=== PATIENT | female | born 1995 | race Caucasian/White ===

== ENCOUNTER → 2018-08-14 14:40 | Outpatient (CLI) | payer OTHER, SELFPAY ==
--- NOTE | 2018-08-14 14:44 | US_ITS ---
US transvaginal HISTORY: Pelvic pain mostly on the right ITS.REASON: US T/V- Abnormal Vaginal Bleeding ORDERING PHYSICIAN: Jaylan Aguayo MD PATIENT AGE: 22 years Comparison: None FINDINGS: UTERUS: The uterus measures 6.8 x 4.6 x 5.5 cm. Combined endometrial thickness is 11 mm. The uterus is retroverted. Small cystic area versus vessel noted in the mid aspect of the anterior uterine wall measuring 8 mm. RIGHT OVARY: 4 x 3.2 cm. There is a 2.3 cm right ovarian cyst is some internal debris and other smaller right ovarian follicles LEFT OVARY: 2.8 x 1.9 cm There are small amount fluid in the cul-de-sac. Bilateral ovarian blood flow is present IMPRESSION: 1. Retroverted uterus. 2. 2.3 Cm complex right ovarian cyst with a small amount fluid in the cul-de-sac
== END ==
PROVIDERS: PCP Internal Medicine; Visit Provider Nurse Practitioner Obstetrics & Gynecology
DX: N92.6 Irregular menstruation, unspecified (principal)
CPT/HCPCS: 76830

== ENCOUNTER 2019-05-23 12:39 | Emergency (ER) | payer OTHER, SELFPAY ==
[2019-05-23 12:42] VITALS: BP 136/72; PULSE 69; RESP 20; TEMP 36.7; O2SAT 99; BMI 30.4
--- NOTE | 2019-05-23 12:57 | CT_ITS ---
PROCEDURE: CT ABDOMEN PELVIS W CON CLINICAL INDICATION: ABD PAIN, NV COMPARISON: No exams were available for comparison TECHNIQUE: IV Contrast: 75ML OPTIRAY 350 Oral Contrast 20ml Gastroview Axial images obtained with sagittal and coronal reformats. All CT scans at the facility use one or more dose reduction, viz: automated exposure control, ma/kV adjustment per patient size (including targeted exams where dose is matched to indication, i.e. head), or iterative reconstruction technique. FINDINGS: LOWER THORAX: No acute finding ABDOMEN & PELVIS: Borderline splenomegaly at 13 cm. There are 2 subtle hypodensities in the inferior aspect of the right hepatic lobe at 7 mm each nonspecific. There is a 1.7 cm posterior periportal lymph node. The adrenal glands pancreas and kidneys have an unremarkable appearance. No evidence of appendicitis or diverticulitis. No intestinal obstruction or free air. There is a small amount fluid in the pelvis which is nonspecific. 2 cm right ovarian cyst noted. No acute bony findings. IMPRESSION: 1. No acute finding. 2. Nonacute findings as described above including mild splenomegaly, 2 small hepatic hypodensities which are indeterminate. Follow-up exam in 3 months with hemangioma protocol may provide further evaluation. Small periportal lymph node small amount of cul-de-sac fluid and a small right ovarian cyst also noted. Dictated by: Donald Lee MD 05/23/2019 14:39 Electronically signed by Donald Lee MD in [facility] 05/23/2019 14:39
[2019-05-23 13:01] LABS: Microscopic, Urine URINE MICROSCOPIC (MICROSCOPIC)
[2019-05-23 13:05] LABS: Appearance,Urine CLEAR (Clear); Bilirubin,Urine Negative (Negative); Blood, Urine 3+ (Negative); Glucose,Urine (UA) Negative (Negative); Ketones,Urine Negative (Negative); Leukocyte Esterase,Urine TRACE (Negative); Nitrate,Urine Negative (Negative); Protein,Urine 1+ (Negative); Specific Gravity, Urine 1.025 (1.005-1.030); Urobilinogen,Urine 0.2 EU/dl (0.2)
[2019-05-23 13:06] LABS: Color,Urine Red (Yellow); Urine Pregnancy, HCG Qual. Negative (Negative)
[2019-05-23 13:11] LABS: Basophils % 0.2 % (0.1-2.0); Eosinophils % 0.2 % (0.1-12.0); Hematocrit 39.3 % (37.0-47.0); Hemoglobin 12.8 g/dL (12.2-16.2); Lymphocytes # 0.7 K/mm3 (0.7-4.5); Lymphocytes % 7.8 % (10-50); Mean Corpuscular HGB Conc 32.6 g/dL (31.8-35.4); Mean Corpuscular Hemoglobin 27.1 pg (27.0-31.2); Mean Corpuscular Volume 83.1 fl (81-99); Monocytes # 0.3 K/mm3 (0.1-1.0); Monocytes % 3.4 % (1.7-9.3); Neutrophils # 8.4 K/mm3 (1.8-7.8); Neutrophils % 88.4 % (37.0-80.0); Platelet Count 244 K/mm3 (142-424); Red Blood Count 4.73 M/mm3 (4.20-5.40); White Blood Count 9.5 K/mm3 (4.8-10.8)
[2019-05-23 13:13] LABS: MANUAL DIFFERENTIAL MANUAL DIFFERENTIAL (MANUAL DIFF)
[2019-05-23 13:13] LABS: Bacteria,Urine 3+ /lpf; Mucus,Urine Trace /lpf; RBC,Urine 20-50 #/hpf (0-3); WBC,Urine TNTC #/hpf (0-3)
[2019-05-23 13:14] LABS: Chloride 102 mmol/L (98-107); Potassium 3.6 mmoL/L (3.5-5.1); Sodium 138 mmol/L (136-145)
[2019-05-23 13:16] LABS: Barbiturates Screen,Urine Negative ng/ml (<200)
[2019-05-23 13:17] LABS: Alanine Aminotransferase 18 U/L (12-78); Albumin Level 4.7 g/dl (3.5-5.0); Albumin/Globulin Ratio 1.5 (1.1-1.8); Alkaline Phosphatase 73 U/L (38-126); Amylase 62 U/L (30-110); Anion Gap 11.6 mEq/L (5-15); Aspartate Amino Transferase 24 U/L (14-36); Bilirubin,Total 0.4 mg/dl (0.2-1.3); Blood Urea Nitrogen 11 mg/dl (7-17); Calcium 9.4 mg/dl (8.4-10.2); Carbon Dioxide 28 mmol/L (22.0-30.0); Creatinine Clearance Estimated 212 mL/min (50-200); Estimated Glomerular Filt Rate 126 ml/min (>60); GFR (African American) 153 ML/MIN (>60); Globulin 3.2 g/dL (1.3-3.2); Glucose 147 mg/dl (74-100); Lipase 43 U/L (23-300); Total Protein,Serum 7.9 g/dl (6.3-8.2)
[2019-05-23 13:17] LABS: Amphetamine/Metha Screen,Urine Negative ng/ml (<1000); Benzodiazepines Screen,Urine Negative ng/ml (<200)
[2019-05-23 13:18] LABS: Cannabinoid Screen,Urine Negative ng/ml (<50)
[2019-05-23 13:19] LABS: Cocaine Screen,Urine Negative ng/ml (<300)
[2019-05-23 13:20] LABS: Methadone Screen,Urine Negative ng/ml (<300); Opiate Screen,Urine Negative ng/ml (<300)
[2019-05-23 13:21] LABS: Phencyclidine Screen,Urine Negative ng/ml (<25)
--- NOTE | 2019-05-23 13:23 | HMH.EDGENADL ---
ED Disposition Clinical Impression: Cystitis, Vaginal bleeding Abdominal pain Qualifiers: Abdominal location: lower abdomen, unspecified Qualified Code(s): R10.30 - Lower abdominal pain, unspecified Disposition: Home, Self-Care Condition on Discharge: Good Instructions: DI for Abdominal Pain-Adult, DI for Vaginal Bleeding, DI for Urinary Tract Infection (UTI) Additional Instructions: Antibiotic as prescribed. Pyridium as prescribed. Ibuprofen as needed. Follow up with your primary care provider next week for urine culture results and also for further evaluation of vaginal bleeding. Follow-up with your primary care physician for CAT scan follow-up. Additional instructions for URINARY TRACT INFECTION: See your physician in 2-3 days for follow up and culture results. Return immediately if you have an uncontrollable fever greater than 102 degrees, severe back or abdominal pain, inability to urinate, or repetitive vomiting. Additional instructions for ABDOMINAL PAIN: See your physician as soon as possible for further evaluation. Return immediately if worsening abdominal pain, vomiting, shortness of breath, fever, vomiting of blood or abdominal distention. Prescriptions: cephALEXin [Keflex 500mg Cap] 500 mg PO QID #28 cap Transmission Status: Pending to [id number] Phenazopyridine HCl [Pyridium 200mg Tablet] 200 pow PO TID #6 tab Transmission Status: Pending to [id number] Referrals: Provider,Referral, [Primary Care Provider] - - Critical Care Critical Care Time: No Attestation: On 05/23/19, the high probability of a clinically significant, sudden or life threatening deterioration of the following system(s) required my full and direct attention, intervention and personal management. The time I documented below is in addition to time spent performing reported procedures but includes the following listed in this critical care notation. Medical Decision Making - Mihir Inquiry Pt receiving controlled substance: No Vital Signs: 05/23/19 12:42 Temperature 98.1 F Temperature Source Oral Pulse Rate [Right] 69 Respiratory Rate 20 Blood Pressure [Right Arm] 136/72 Blood Pressure Mean [Right Arm] 93 02 Sat by Pulse Oximetry 99 - Lab Data Lab Results 05/23/19 12:50: Urine Color Red, Urine Appearance Clear, Urine pH 8.0, Ur Specific [place] 1.025, Urine Protein 1+, Urine Glucose (UA) Negative, Urine Ketones Negative, Urine Blood 3+, Urine Nitrate Negative, Urine Bilirubin Negative, Urine Urobilinogen 0.2, Ur Leukocyte Esterase Trace, Urine RBC 20-50, Urine WBC Tntc, Ur Squamous Epith Cells 5-10, Urine Bacteria 3+, Urine Mucus Trace 05/23/19 12:50: Urine HCG, Qual Negative 05/23/19 12:50: Urine Opiates Screen Negative, Urine Methadone Screen Negative, Ur Barbituates Screen Negative, Ur Phencyclidine Scrn Negative, Ur Amphetamines Screen Negative, U Benzodiazepines Scrn Negative, Urine Cocaine Screen Negative, U Marijuana (THC) Screen Negative 05/23/19 13:03: WBC 9.5, RBC 4.73, Hgb 12.8, Hct 39.3, MCV 83.1, MCH 27.1, MCHC 32.6, RDW 14.0, Plt Count 244, MPV 8.0, Neut % (Auto) 88.4 H, Lymph % (Auto) 7.8 L, [place] % (Auto) 3.4, Eos % (Auto) 0.2, Baso % (Auto) 0.2, Neut # (Auto) 8.4 H, Lymph # (Auto) 0.7, [place] # (Auto) 0.3, Eos # (Auto) 0.0, Baso # (Auto) 0.0, Total Counted 100, Neutrophils % (Manual) 86 H, Lymphocytes % (Manual) 10, Monocytes % (Manual) 4, Platelet Estimate Normal, RBC Morphology Normal 05/23/19 13:03: Sodium 138, Potassium 3.6, Chloride 102, Carbon Dioxide 28, Anion Gap 11.6, BUN 11, Creatinine 0.60, Estimated Creat Clear 212, Estimated GFR 126, Est GFR ( Amer) 153, Glucose 147 H, Calcium 9.4, Total Bilirubin 0.4, AST 24, ALT 18, Alkaline Phosphatase 73, Total Protein 7.9, Albumin 4.7, Globulin 3.2, Albumin/Globulin Ratio 1.5, Amylase 62, Lipase 43 Result diagrams: 05/23/19 13:03 05/23/19 13:03 Orders (Tests/Meds): ED MEDICATIONS Generic Name Dose Route Start
[2019-05-23 13:30] LABS: Lymphocytes % 10 % (10-50); Monocytes % 4 % (2-9); Neutrophils % 86 % (42-76); Platelet Estimate Normal; RBC Morphology Normal; Total Cells Counted 100
[2019-05-23 16:03] VITALS: BP 119/61; PULSE 55; RESP 20; TEMP 36.6; O2SAT 98
== END 2019-05-23 16:08 | disposition home or self-care (01) ==
PROVIDERS: Emergency Provider Emergency Medicine
DX: N30.00 Acute cystitis without hematuria (principal); N93.8 Other specified abnormal uterine and vaginal bleeding; F41.8 Other specified anxiety disorders; Z79.899 Other long term (current) drug therapy
CPT/HCPCS: 74177; 80053; 80305; 81001; 81025; 82150; 83690; 85007; 85025; 87086; 96365; 96367; 96372; 99283; Q9967

== ENCOUNTER → 2020-06-05 13:16 | Outpatient (CLI) | payer OTHER, SELFPAY ==
--- NOTE | 2020-06-05 13:19 | US_ITS ---
PROCEDURE: US OB >= 14 WEEKS FETUS CLINICAL INDICATION: US OB Complete 20 wk anatomy scan-AFTER 14 wks COMPARISON: No exams were available for comparison FINDINGS: There is a single live fetus which is in breech presentation. heart body motion noted. The cervix is closed measuring 3 cm in length. The placenta posterior and fundal also with an anterior accessory component. Placenta is grade 1. Complete survey performed and was unremarkable on the submitted images as in PACS. No discrete anomalies identified on survey imaging by technologist. Active fetus. Three-vessel cord with satisfactory umbilical cord insertion. 4- chamber heart noted. Survey of brain & ventricles Unremarkable. Face and neck survey unremarkable. Diaphragm and chest views unremarkable. Abdomen: Both kidneys noted and unremarkable. Stomach noted and satisfactory. Spine: Survey of the spine satisfactory with no anomalies identified nor imaged. Both arms and legs noted. Amniotic Fluid: Adequate. Maternal adnexa: No significant findings. Measurements: Average ultrasound age 20weeks 6days. Gestational Age 20weeks 6days Estimated due date by ultrasound age 0910/17/2020. Estimated weight 395g BPD = 20weeks 4days OFD = 20weeks 4days HC = 19weeks 6days AC = 21weeks 3days FL = 21weeks 1day Growth Percentile= 33Percent% Heart Rate = 153bpm Cerebellum = 20weeks 6days Humerus = 22weeks HC/AC is 1.06 CI is 0.79 FL/BPD is 0.73 FL/AC is 0.21 IMPRESSION: Live IUP in breech presentation with an average ultrasound age of 20 weeks and 6 days. No obvious anomalies. Please see above for detail. Dictated by: Donald Lee MD 06/06/2020 09:20 Donald Lee MD in [facility] 06/06/2020 09:20
== END ==
PROVIDERS: PCP Internal Medicine Cardiovascular Disease; Visit Provider Nurse Practitioner Obstetrics & Gynecology
DX: Z36.0 Encounter for antenatal screening for chromosomal anomalies (principal); Z3A.20 20 weeks gestation of pregnancy
CPT/HCPCS: 76805

== ENCOUNTER 2020-08-01 10:47 | Outpatient (CLI) | payer OTHER, SELFPAY ==
[2020-08-01 11:16] LABS: Glucose,Fasting 81 mg/dl (74-100)
[2020-08-01 13:00] LABS: Glucose 1 Hour 135 mg/dL (74-100)
--- NOTE | 2020-08-01 14:04 | PC.NURSE ---
Injection given in r gluteul muscle. Pt was monitored for 20 min afterwards and tolerated well.
== END 2020-08-01 14:03 | disposition home or self-care (01) ==
PROVIDERS: PCP Internal Medicine; Visit Provider Nurse Practitioner Obstetrics & Gynecology
DX: Z34.90 Encounter for supervision of normal pregnancy, unspecified, unspecified trimester (principal)
CPT/HCPCS: 82951; 96372; J2790

== ENCOUNTER → 2020-08-08 10:45 | Outpatient (CLI) | payer OTHER, SELFPAY ==
[2020-08-08 11:38] LABS: Glucose,Fasting 83 mg/dl (74-100)
[2020-08-08 11:45] LABS: Basophils % 0.3 % (0.1-2.0); Eosinophils # 0.1 K/mm3 (0.0-0.4); Hematocrit 30.4 % (37.0-47.0); Hemoglobin 10.8 g/dL (12.2-16.2); Lymphocytes % 11.9 % (10-50); Mean Corpuscular HGB Conc 35.5 g/dL (31.8-35.4); Mean Corpuscular Hemoglobin 31.4 pg (27.0-31.2); Mean Corpuscular Volume 88.7 fl (81-99); Monocytes # 0.4 K/mm3 (0.1-1.0); Monocytes % 5.1 % (1.7-9.3); Neutrophils # 6.9 K/mm3 (1.8-7.8); Neutrophils % 81.7 % (37.0-80.0); Platelet Count 75 K/mm3 (142-424); Red Blood Count 3.42 M/mm3 (4.20-5.40); White Blood Count 8.5 K/mm3 (4.8-10.8)
[2020-08-08 13:05] LABS: Glucose 1 Hour 159 mg/dL (74-100)
[2020-08-09 10:35] LABS: HIV Screen 4th Generation wRfx Non Reactive (Non Reactive); Hepatitis B Surface Antigen Negative (Negative); Hepatitis C Antibody <0.1 s/co ratio (0.0-0.9)
[2020-08-09 11:08] LABS: Rapid Plasma Reagin Ab Titer Non Reactive (NonRea<1:1)
== END ==
PROVIDERS: Visit Provider Nurse Practitioner Obstetrics & Gynecology
DX: Z34.90 Encounter for supervision of normal pregnancy, unspecified, unspecified trimester (principal); Z3A.16 16 weeks gestation of pregnancy
CPT/HCPCS: 36415; 82951; 85025; 86592; 86703; 86762; 86850; 86870; 87340; 87380; G0432

== ENCOUNTER → 2020-09-23 17:57 | Outpatient (CLI) | payer OTHER, SELFPAY | PROVIDERS: Visit Provider Nurse Practitioner Obstetrics & Gynecology | DX: Z34.90 Encounter for supervision of normal pregnancy, unspecified, unspecified trimester (principal) | CPT/HCPCS: 86403 ==

== ENCOUNTER 2020-10-11 23:44 | Inpatient (IN) | payer OTHER, SELFPAY ==
[2020-10-11 22:39] VITALS: BMI 32.2
[2020-10-11 23:09] LABS: Microscopic, Urine URINE MICROSCOPIC (MICROSCOPIC)
[2020-10-11 23:13] LABS: Appearance,Urine CLEAR (Clear); Bilirubin,Urine Negative (Negative); Blood, Urine Negative (Negative); Color,Urine YELLOW (Yellow); Glucose,Urine (UA) Negative (Negative); Ketones,Urine Negative (Negative); Leukocyte Esterase,Urine Negative (Negative); Nitrate,Urine Negative (Negative); Protein,Urine Negative (Negative); Urobilinogen,Urine 0.2 EU/dl (0.2)
[2020-10-11 23:17] VITALS: BP 134/83; PULSE 67; RESP 18; TEMP 36.7; O2SAT 96; BMI 32.2
[2020-10-11 23:23] LABS: Fetal Membrane Rupture (Rapid) Positive (Negative)
[2020-10-11 23:27] LABS: Amphetamine/Metha Screen,Urine Negative ng/ml (<1000); Bacteria,Urine Trace /lpf; Squamous Epithelial Cell,Urine Occasional #/hpf (0-5)
[2020-10-11 23:28] LABS: Barbiturates Screen,Urine Negative ng/ml (<200)
[2020-10-11 23:29] LABS: Benzodiazepines Screen,Urine Negative ng/ml (<200); Cannabinoid Screen,Urine Negative ng/ml (<50)
[2020-10-11 23:30] LABS: Cocaine Screen,Urine Negative ng/ml (<300)
[2020-10-11 23:31] LABS: Methadone Screen,Urine Negative ng/ml (<300); Opiate Screen,Urine Negative ng/ml (<300)
[2020-10-11 23:32] LABS: Phencyclidine Screen,Urine Negative ng/ml (<25)
[2020-10-12 00:24] LABS: Coronavirus 19, PCR Not Detected (NotDetected); Influenza A, PCR Not Detected (NotDetected); Influenza B, PCR Not Detected (NotDetected)
[2020-10-12 00:27] LABS: Basophils # 0.1 K/mm3 (0-0.2); Basophils % 0.4 % (0.1-2.0); Eosinophils % 0.3 % (0.1-12.0); Hematocrit 39.7 % (37.0-47.0); Hemoglobin 13.5 g/dL (12.2-16.2); Lymphocytes # 1.8 K/mm3 (0.7-4.5); Lymphocytes % 14.2 % (10-50); Mean Corpuscular HGB Conc 34.1 g/dL (31.8-35.4); Mean Corpuscular Hemoglobin 31.3 pg (27.0-31.2); Mean Corpuscular Volume 91.7 fl (81-99); Mean Platelet Volume 8.5 fl (7.4-10.4); Monocytes # 0.6 K/mm3 (0.1-1.0); Monocytes % 4.7 % (1.7-9.3); Neutrophils # 10.1 K/mm3 (1.8-7.8); Neutrophils % 80.4 % (37.0-80.0); Platelet Count 192 K/mm3 (142-424); Red Blood Count 4.33 M/mm3 (4.20-5.40); Red Cell Distribution Width 14.7 % (11.5-17.5); White Blood Count 12.6 K/mm3 (4.8-10.8)
--- NOTE | 2020-10-12 10:19 | HMH.ANESCL ---
[facility] Anesthesia Checklist - Patient Identification Patient Identification: Arm Band, Verbal (Name & ) - Structural Data Admitted From: Inpatient Planned Operative Procedure/s: labor epidural Consent for Planned Operative Procedure(s) Verified: Yes Verified Documents: History and Physical - Chart Verification Results Verified: CBC, BMP - Additional verifications Patient : Yes Anesthesia Reactions: No Hx Blood Transfusions: No Blood Transfusion Reaction: No Cephalosporin Allergy: No Previous Colonoscopy: No - Cardiovascular Assessment Heart Sounds: S1 & S2 Pulse Strength: Baseline Pulse Rhythm: Regular Peripheral Edema: No - Airway Assessment C-Spine Mobility Assessed: Yes TMJ Mobility Assessed: Yes Dentition: Good Dentition - Neurological Assessment Level of Consciousness: Awake, Alert, Appropriate Hx Seizures: No Numbness or tingling in extremities: No - Anesthesia Plan Anesthesia Risk discussed: Yes Anesthesia Plan: Verified ASA Class: II Anesthesia Type: Epidural [facility] History I have reviewed the patient's past medical history: Yes Medical History: Reports:: Anxiety, Depression Denies:: Hyperlipidemia, Hypertension, Migraine, MRSA, Seizures *Have you ever received a pneumonia vaccine?: No *Have you received a flu vaccine this season?: No Anesthesia experience/problems:: none Other Surgeries: Yes: No Previous Surgery, Cholecystectomy. No: Amputation: No Fractures: No - *Social History Smoking Status: Never smoker Alcohol Intake: never Alcohol Intake Frequency:: other Substance Use Type: denies use *Occupational Status:: unemployed *Travel in the last 8 weeks: None - Psychiatric History Pschychiatric History:: Reports:: Anxiety, Depression Family Hx:: Diabetes, Hypertension Para: 0
--- NOTE | 2020-10-12 10:20 | HMH.LABNOT ---
Labor Note - Subjective: Date: 10/12/20 Time: 10:20 regular contraction - Objective: NST:: Reactive Contractions:: every 2-3 minutes Cervical Dilation:: 5 Effacement:: 90% Station: 0 Membranes: spontaneously ruptured - Fetus: Monitoring?: Yes monitoring type:: Internal and External Comment:: I inserted an IUPC - Assessment: Labor progressing?: Yes Cephalopelvic disproportion?: No Patient Problems: All Active Problems (Acute) - Plan: Anesthesia for epidural?: Yes Continue to labor down?: Yes Plan for ?: No Continue to monitor?: Yes Start pushing?: No
--- NOTE | 2020-10-12 10:21 | HMH.OBAPHP ---
OB - H&P: HPI Antepartum - History of Present Illness Chief complaint: Spontaneous rupture of membranes History of present illness: She is a 24-year-old 1 para 0 at 38+3 weeks gestational age. She ruptured membranes at home at 5:30 in the evening of October 11, 2020. As result that she came to hospital. This was confirmed with [facility]. - History of Present Criteria for establishing EDC:: LMP confirmed by 1st trimester US care: good care Ultrasounds: normal 1st trimester US, normal mid trimester US Obstetrical complications: none Medical complications: none - Labs Blood type: A (-) negative Rubella: immune RPR/VDRL: nonreactive GBS status: negative HBsAG: negative [facility] History I have reviewed the patient's past medical history: Yes Medical History: Reports:: Anxiety, Depression Denies:: Hyperlipidemia, Hypertension, Migraine, MRSA, Seizures *Have you ever received a pneumonia vaccine?: No *Have you received a flu vaccine this season?: No Other Medical History: Denies: Blood Transfusion Reaction Anesthesia experience/problems:: none Other Surgeries: Yes: No Previous Surgery, Cholecystectomy. No: Amputation: No Fractures: No - *Social History Smoking Status: Never smoker Alcohol Intake: never Alcohol Intake Frequency:: other Substance Use Type: denies use *Occupational Status:: unemployed *Travel in the last 8 weeks: None - Psychiatric History Pschychiatric History:: Reports:: Anxiety, Depression Family Hx:: Diabetes, Hypertension Para: 0 Review of Systems - Review of Systems Review of systems:: pertinent systems reviewed and negative unless documented below Meds Home Medications Medication Instructions Recorded Confirmed Type Ferrous Gluconate [Ferrous 324 mg PO DAILY 10/11/20 10/11/20 History Gluconate 324mg Tab] Vit No.130/Iron/Folic 1 tab PO DAILY 10/11/20 10/11/20 History [ Tablet] Allergies Allergy/AdvReac Type Severity Reaction Status Date / Time No Known Allergies Allergy Verified 10/07/20 16:08 OB - H&P: Exam - Physical Exam Vital signs: Temp Pulse Resp BP Pulse Ox 98.1 F 67 18 134/83 96 10/11/20 23:17 10/11/20 23:17 10/11/20 23:17 10/11/20 23:17 10/11/20 23:17 - Constitutional no acute distress - Routine HEENT Exam Head: Present: normocephalic Eye: Present: EOMI, PERRL ENT: Present: mucous membranes moist - Routine Neck Exam Present: supple, full ROM - Routine Respiratory Exam Absent: accessory muscle use (good air entry bilaterally), respiratory distress, wheezes, crackles - Routine Cardiovascular Exam Present: RRR. Absent: murmur - Routine Abdominal Exam Present: soft, normoactive bowel sounds. Absent: tenderness, distended, guarding - Routine Rectal Exam Patient deferred: visual exam, digital exam - Routine Exam Patient deferred: external exam, groin exam, perineal exam - Routine Extremities Exam Present: full ROM. Absent: cyanosis, edema - Routine Skin Exam Present: intact. Absent: cyanosis - Routine Neurological Exam Present: alert, oriented X3 - Routine Psychiatric Exam Present: normal affect OB - Results - Labs Labs: Short CBC 10/11/20 Range/Units 00:10 WBC 12.6 H (4.8-10.8) K/mm3 Hgb 13.5 (12.2-16.2) g/dL Hct 39.7 (37.0-47.0) % Plt Count 192 (142-424) K/mm3 Urine 10/11/20 Range/Units 22:48 Urine Color Yellow (Yellow) Urine Appearance Clear (Clear) Urine pH 7.0 (5.0-8.5) Ur Specific [place] 1.020 (1.005-1.030) Urine Protein Negative (Negative) Urine Glucose (UA) Negative (Negative) OB - A/P Antepartum (1) Normal delivery at term Status: Acute - Additional Plan Planning to breastfeed?: Yes Plan: other Additional Information:: She has spontaneous rupture of membranes at home at 38 weeks. We will expect a vaginal delivery.
--- NOTE | 2020-10-12 11:47 | HMH.LABNOT ---
Labor Note - Subjective: Date: 10/12/20 Time: 11:47 regular contraction - Objective: NST:: Reactive Contractions:: every 2-3 minutes Cervical Dilation:: 6 Effacement:: 100% Station: 0 Membranes: spontaneously ruptured - Fetus: Monitoring?: Yes monitoring type:: Internal and External - Assessment: Labor progressing?: Yes Cephalopelvic disproportion?: No Patient Problems: All Active Problems Normal delivery at term (Acute) (Acute) - Plan: Anesthesia for epidural?: Yes Continue to labor down?: Yes Plan for ?: No Continue to monitor?: Yes Start pushing?: No
[2020-10-12 14:22] LABS: Cord Blood PH 7.32 (7.35-7.45)
--- NOTE | 2020-10-12 14:53 | HMH.DN ---
- Delivery Note Delivery Date:: 10/12/20 Delivery Time:: 14:10 Anesthesia Type: Epidural Was labor medically induced?: No Induction method: none Gestational age (weeks): 38 Infant delivered prior to 39 weeks?: Yes Justification for early elective delivery:: Active Labor Infant Gender: Female at 1 minute: 8 LAC or MLE?: LAC Delivery Procedure:: She is a 24-year-old 1 now para 0 at 38 weeks gestational age. She ruptured membranes on the evening prior to her delivery. She was started on IV oxytocin had her membranes ruptured. Under labor epidural she progressed to full dilation and delivered spontaneously a liveborn female child at 2:10 PM in the afternoon of October 12, 2020. On deliver the head the anterior shoulder then delivered followed by the rest 's body atraumatically. We allowed the cord to continue to pulsate for approximately 1 minute. The nasopharynx and oropharynx were bulb suctioned. The baby was vigorous. The cord was then doubly clamped and cut and the was placed on the mother's abdomen for further care. The nurses assigned Apgars of 8 at 1 minute and 9 at 5 minutes. We then obtained cord blood as well as cord pH. The pH was 7.31. Using gentle traction on the cord and countertraction the fundus I was able to easily deliver the placenta intact at 2:18 PM. It had a normal three-vessel cord. She had a first-degree vaginal laceration that was repaired with interrupted 3-0 Vicryl Rapide suture. She has a Rh- blood, is rubella immune and was group B streptococcus negative. She plans to breast-feed. Her estimated blood loss was approximately 500 cc. Laceration:: vaginal Placental Delivery Description: Spontaneous
[2020-10-13 07:18] LABS: Hematocrit 34.5 % (37.0-47.0); Hemoglobin 11.8 g/dL (12.2-16.2)
--- NOTE | 2020-10-13 08:19 | HMH.ACPN2 ---
Internal Medicine - PN: Subj *Date: 10/13/20 *Time: 08:19 Interval history: She continues to do well this morning. She is eating and drinking and ambulating. Her lochia is normal. She is breast-feeding. Exam Vital signs and Labs for Last 24 Hours: Temp Pulse Resp BP Pulse Ox 98.1 F 67 18 134/83 96 10/11/20 23:17 10/11/20 23:17 10/11/20 23:17 10/11/20 23:17 10/11/20 23:17 Laboratory Results - last 24 hr 10/12/20 14:19: Cord ABG pH 7.32 L 10/13/20 06:51: Hgb 11.8 L, Hct 34.5 L I & O for Last 24 hours: Intake & Output 10/10/20 10/11/20 10/12/20 10/13/20 11:59 11:59 11:59 11:59 Weight 212 lb - Constitutional no acute distress Assessment and Plan (1) Normal delivery at term Status: Acute Category: Medical Code(s): O80 - Encounter for full-term uncomplicated delivery - Assessment and plan all Dx Assessment and Plan for all problems:: She continues to do well. We will plan to send her home tomorrow.
--- NOTE | 2020-10-14 09:42 | HMH.OBDCSM ---
General - General Admission date:: 10/11/20 Discharge date: 10/14/20 HPI - History of Present Illness History of present illness: She is a 1 para 0 at 39+ weeks gestational age. We brought her in for induction of labor at term. She was quite uncomfortable. Hospital Course Hospital Course: She was started on IV oxytocin had her membranes ruptured. Under labor epidural she progressed to full dilation and delivered spontaneously a liveborn female child at 2:10 PM in the afternoon of October 12, 2020. Baby was a liveborn female child weighing 7 pounds 3 ounces and was 19-1/2 inches long. She had Apgars of 8 at 1 minute and 9 at 5 minutes. She is breast-feeding. She has done well and has remained afebrile throughout her hospitalization. She is eating and drinking and ambulating. She is breast-feeding. She has a Rh- blood, she is rubella immune and was group B streptococcus negative. Her system controller is Dr. Henao. She is discharged home to follow-up with me in approximately 2 weeks time. She will continue with her vitamins and iron. She has some depression that was likely there antepartum and we will go ahead and start Celexa 10 mg. Her condition on discharge is stable and improved. Objective Vital signs: Temp Pulse Resp BP Pulse Ox 98.1 F 67 18 134/83 96 10/11/20 23:17 10/11/20 23:17 10/11/20 23:17 10/11/20 23:17 10/11/20 23:17 no acute distress - *Routine HEENT Exam Head: Present: normocephalic Eye: Present: EOMI, PERRL ENT: Present: mucous membranes moist DS: Diagnosis - Discharge Diagnosis (1) Normal delivery at term Status: Acute (2) depression Status: Acute Discharge Plan - Patient Discharge Instructions ACTIVITY: No heavy lifting DIET: continue same diet - Follow up Plan Disposition: Home, Self-Care Condition at discharge:: Stable Home Medications: Home Medications Medication Instructions Recorded Confirmed Type Ferrous Gluconate [Ferrous 324 mg PO DAILY 10/11/20 10/11/20 History Gluconate 324mg Tab] Vit No.130/Iron/Folic 1 tab PO DAILY 10/11/20 10/11/20 History [ Tablet] Citalopram Hydrobromide [Celexa] 10 mg PO DAILY #30 tab 10/14/20 Rx Prescriptions/Medication Reconciliation: New Citalopram Hydrobromide [Celexa] 10 mg PO DAILY #30 tab Continued Vit No.130/Iron/Folic [ Tablet] 1 tab PO DAILY Ferrous Gluconate [Ferrous Gluconate 324mg Tab] 324 mg PO DAILY - Problem Reconciliation Problems Reviewed?: Yes
== END 2020-10-14 13:00 | disposition home or self-care (01) | DRG 807 ==
LOC: OBOUT 23:48 → OB 23:48
PROVIDERS: Admitting Provider Nurse Practitioner Obstetrics & Gynecology; PCP Internal Medicine Cardiovascular Disease; Visit Provider Nurse Practitioner Obstetrics & Gynecology
DX: O70.0 First degree perineal laceration during delivery (principal); Z37.0 Single live birth; Z3A.38 38 weeks gestation of pregnancy; F53.0 Postpartum depression
CPT/HCPCS: 59409; 36415; 59025; 80305; 81001; 82800; 84112; 85014; 85018; 85025; 85461; 86850; 94761; C1758; G0283; J0595; J2790; U0003

== ENCOUNTER → 2021-01-05 14:37 | Outpatient (CLI) | payer OTHER, SELFPAY | PROVIDERS: PCP Internal Medicine; Visit Provider Nurse Practitioner | DX: Z20.822 Contact with and (suspected) exposure to COVID-19 (principal) | CPT/HCPCS: C9803; U0003; U0005 ==

== ENCOUNTER → 2021-12-02 11:25 | Outpatient (CLI) | payer OTHER, SELFPAY ==
[2021-12-02 13:55] LABS: Triiodothryronine (T3) Uptake 29 % (23.5-40.5)
[2021-12-02 13:56] LABS: Free Thyroxine Index 3.5 ug/dL (5.93-13.13)
[2021-12-02 14:10] LABS: Thyroid Stimulating Hormone 1.97 uIU/mL (0.465-4.68)
[2021-12-03 08:16] LABS: Estradiol 41.6 pg/mL (.); FSH 4.2 mIU/mL (.); LH 2.8 mIU/mL (.)
== END ==
PROVIDERS: PCP Internal Medicine; Visit Provider Nurse Practitioner Obstetrics & Gynecology
DX: Z34.90 Encounter for supervision of normal pregnancy, unspecified, unspecified trimester (principal)
CPT/HCPCS: 36415; 82670; 83001; 83002; 84436; 84443; 84479

== ENCOUNTER → 2022-07-06 23:15 | Outpatient (CLI) | payer OTHER, SELFPAY ==
[2022-07-09 12:10] LABS: Neisseria gonorrhoeae, NAA Negative (Negative)
== END ==
PROVIDERS: Visit Provider Nurse Practitioner Obstetrics & Gynecology
DX: N76.0 Acute vaginitis (principal)
CPT/HCPCS: 87491; 87591

== ENCOUNTER → 2023-01-27 16:11 | Outpatient (CLI) | payer OTHER, SELFPAY ==
[2023-01-29 10:05] LABS: Progesterone 9.8 ng/mL (.)
== END ==
PROVIDERS: PCP Internal Medicine; Visit Provider Nurse Practitioner Obstetrics & Gynecology
DX: N92.6 Irregular menstruation, unspecified (principal)
CPT/HCPCS: 36415; 84144; 84702

== ENCOUNTER 2023-02-20 11:27 | Outpatient (CLI) | payer OTHER, SELFPAY ==
[2023-02-20 12:03] LABS: Basophils % 0.3 % (0.1-2.0); Eosinophils # 0.1 K/mm3 (0.0-0.4); Eosinophils % 0.8 % (0.1-12.0); Hematocrit 40.6 % (37.0-47.0); Hemoglobin 13.7 g/dL (12.2-16.2); Lymphocytes # 1.7 K/mm3 (0.7-4.5); Lymphocytes % 21.5 % (10-50); Mean Corpuscular HGB Conc 33.7 g/dL (31.8-35.4); Mean Corpuscular Hemoglobin 26.6 pg (27.0-31.2); Mean Corpuscular Volume 78.9 fl (81-99); Monocytes # 0.4 K/mm3 (0.1-1.0); Neutrophils # 5.8 K/mm3 (1.8-7.8); Neutrophils % 72.3 % (37.0-80.0); Platelet Count 259 K/mm3 (142-424); Red Blood Count 5.15 M/mm3 (4.20-5.40); Red Cell Distribution Width 17.7 % (11.5-17.5)
[2023-02-21 08:17] LABS: HIV Screen 4th Generation wRfx Non Reactive (Non Reactive)
[2023-02-21 12:12] LABS: Rapid Plasma Reagin Ab Titer Non Reactive titer (NonRea<1:1)
[2023-03-01 08:52] LABS: Hepatitis B Surface Antigen Negative; Hepatitis C Antibody Non Reactive
== END 2023-02-20 23:59 ==
LOC: LAB 11:29
PROVIDERS: PCP Internal Medicine; Visit Provider Nurse Practitioner Obstetrics & Gynecology
DX: Z34.91 Encounter for supervision of normal pregnancy, unspecified, first trimester (principal); Z3A.13 13 weeks gestation of pregnancy
CPT/HCPCS: 36415; 85025; 86593; 86703; 86762; 86850; 87086; 87340; 87380; G0432

== ENCOUNTER 2023-04-04 13:00 | Outpatient (CLI) | payer OTHER, SELFPAY ==
--- NOTE | 2023-04-04 13:03 | US_ITS ---
PROCEDURE: US OB >= 14 WEEKS FETUS CLINICAL INDICATION: 20 week anatomy scan COMPARISON: US US OB >= 14 WEEKS FETUS from 06/05/2020 FINDINGS: Transabdominal sonographic images of the pelvis were obtained. From her established due date she is 19 weeks 3 days. Single viable intrauterine gestation. Cephalic position. Placenta: Anterior with possible posterior accessory lobeplacenta grade 1. Accessory lobe could be uterine contraction. There is an average amount of fluid. The cervix appears satisfactory. Closed and measuring 3.9 cm in length. Complete survey performed and was unremarkable on the submitted images as in PACS. No discrete anomalies identified on survey imaging by technologist. Active fetus. Three-vessel cord with satisfactory umbilical cord insertion. 4- chamber heart noted. Situs, aortic arch, LVOT, RVOT, three-vessel view appear normal. Difficult to evaluate due to position. Survey of brain & ventricles Unremarkable. Cerebellum, thalamus, choroid plexus, cisterna magna appear normal. Face and neck survey unremarkable. Profile, nasion, lips and nose appeared normal. Diaphragm and chest views unremarkable. Abdomen: Both kidneys noted and unremarkable. Stomach and bladder noted and satisfactory. Spine: Survey of the spine satisfactory with no anomalies identified nor imaged. Cervical, thoracic, lower spine appear normal. Both arms and legs noted. Amniotic Fluid: Adequate. Measurements: Average ultrasound age 19weeks 4days. Estimated due date by ultrasound age 0708/25/2023. Estimated weight 293g BPD = 19weeks 6days HC = 19weeks 3days AC = 19weeks 3days FL = 19weeks 4days Growth Percentile= 46 percent Heart Rate = 146bpm Cerebellum = 20weeks 0 days Humerus = 20weeks 2days HC/AC is 1.19 FL/BPD is 0.67 FL/AC is 0.22 IMPRESSION: 1. Viable fetus in the cephalic presentation with an anterior placenta grade 1. There appears to be a posterior accessory lobe, possible uterine contraction. 2. The fluid is within normal limits. 3. Anatomic scan appears normal. 4. Cardiac scan was limited due to position. Would suggest repeat cardiac views in 4 weeks time along with placental views as well to rule out the accessory lobe. 5. biometry is consistent with the dates. Dictated by: Jaylan Aguayo MD 04/04/2023 15:50 Jaylan Aguayo MD in [facility] 04/04/2023 15:50
== END 2023-04-04 23:59 ==
LOC: RAD 13:00
PROVIDERS: PCP Internal Medicine; Visit Provider Nurse Practitioner Obstetrics & Gynecology
DX: O26.892 Other specified pregnancy related conditions, second trimester (principal); Z3A.20 20 weeks gestation of pregnancy
CPT/HCPCS: 76805

== ENCOUNTER 2023-04-26 15:04 | Outpatient (CLI) | payer OTHER, SELFPAY ==
--- NOTE | 2023-04-26 15:07 | US_ITS ---
PROCEDURE: US OB FOLLOW UP CLINICAL INDICATION: Cardiac scan was limited due to position. COMPARISON: US US OB >= 14 WEEKS FETUS from 04/04/2023 FINDINGS: Transabdominal sonographic images of the pelvis were obtained. The following parameters are obtained: From her established due date she is 22weeks 4days Viable fetus in the cephalic presentation with an anterior placenta grade 1. The cervix measures 3.4 cm heart rate: 147bpm bpm. Amniotic fluid : Normal No obvious anomalies evident. profile seen, nasion, stomach, bladder, three-vessel cord, aortic arch, LVOT, 3 vessel view, RVOT, four chamber heart appear normal. IMPRESSION: 1. Viable fetus in the cephalic presentation with an anterior placenta grade 1. 2. The fluid is within normal limits. 3. Complete anatomic scan of the heart appears normal. Dictated by: Jaylan Aguayo MD 04/26/2023 16:45 Jaylan Aguayo MD in [facility] 04/26/2023 16:45
== END 2023-04-26 23:59 ==
LOC: RAD 15:05
PROVIDERS: PCP Internal Medicine; Visit Provider Nurse Practitioner Obstetrics & Gynecology
DX: O26.892 Other specified pregnancy related conditions, second trimester (principal); Z3A.22 22 weeks gestation of pregnancy; Z36.2 Encounter for other antenatal screening follow-up
CPT/HCPCS: 76816

== ENCOUNTER 2023-06-15 12:40 | Outpatient (CLI) | payer OTHER, SELFPAY ==
[2023-06-15 12:58] LABS: Basophils % 0.3 % (0.1-2.0); Eosinophils # 0.1 K/mm3 (0.0-0.4); Eosinophils % 1.1 % (0.1-12.0); Hematocrit 37.9 % (37.0-47.0); Hemoglobin 12.9 g/dL (12.2-16.2); Lymphocytes # 1.4 K/mm3 (0.7-4.5); Lymphocytes % 13.9 % (10-50); Mean Corpuscular Volume 88.1 fl (81-99); Mean Platelet Volume 7.9 fl (7.4-10.4); Monocytes # 0.4 K/mm3 (0.1-1.0); Monocytes % 4.1 % (1.7-9.3); Neutrophils # 8.1 K/mm3 (1.8-7.8); Neutrophils % 80.5 % (37.0-80.0); Platelet Count 213 K/mm3 (142-424); Red Cell Distribution Width 16.4 % (11.5-17.5); White Blood Count 10.1 K/mm3 (4.8-10.8)
[2023-06-15 13:08] LABS: Glucose,Fasting 79 mg/dl (74-100)
[2023-06-15 13:34] LABS: Triiodothryronine (T3) Uptake 18 % (23.5-40.5)
[2023-06-15 13:35] LABS: Free Thyroxine Index 3.2 ug/dL (5.93-13.13); T4 (Thyroxine) 17.6 ug/dl (5.53-11.0)
[2023-06-15 13:48] LABS: Thyroid Stimulating Hormone 1.18 uIU/mL (0.465-4.68)
[2023-06-15 14:28] LABS: Glucose 1 Hour 147 mg/dL (74-100)
== END 2023-06-15 23:59 | disposition home or self-care (01) ==
LOC: LAB 12:41
PROVIDERS: PCP Internal Medicine; Visit Provider Nurse Practitioner Obstetrics & Gynecology
DX: O26.893 Other specified pregnancy related conditions, third trimester (principal); Z3A.29 29 weeks gestation of pregnancy
CPT/HCPCS: 36415; 82951; 84436; 84443; 84479; 85025

== ENCOUNTER 2023-06-23 07:54 | Outpatient (CLI) | payer OTHER, SELFPAY ==
[2023-06-23 08:37] LABS: Glucose,Fasting 92 mg/dl (74-100)
[2023-06-23] MEDS: RHO(D) IMMUNE GLOBULIN 1,500 UNIT SYRINGE 1500 UNIT IM (09:40)
[2023-06-23 09:52] VITALS: BP 124/69; PULSE 73; RESP 18; O2SAT 97
[2023-06-23 10:28] LABS: Glucose 1 Hour 178 mg/dL (74-100)
[2023-06-23 10:50] LABS: Glucose 2 Hour 143 mg/dL (74-100)
[2023-06-23 12:18] LABS: Glucose 3 Hour 84 mg/dL (74-100)
== END 2023-06-23 09:52 | disposition home or self-care (01) ==
LOC: LAB 07:55 → INF 09:47
PROVIDERS: Visit Provider Nurse Practitioner Obstetrics & Gynecology
DX: O26.893 Other specified pregnancy related conditions, third trimester (principal); Z67.91 Unspecified blood type, Rh negative; Z3A.30 30 weeks gestation of pregnancy
CPT/HCPCS: 36415; 82951; 96372; J2790

== ENCOUNTER 2023-08-01 16:59 | Outpatient (CLI) | payer OTHER, SELFPAY | END 2023-08-01 23:59 | disposition home or self-care (01) | LOC: LAB.DROPOF 16:59 | PROVIDERS: PCP Nurse Practitioner Obstetrics & Gynecology; Visit Provider Nurse Practitioner Obstetrics & Gynecology | DX: O26.893 Other specified pregnancy related conditions, third trimester (principal); Z3A.34 34 weeks gestation of pregnancy | CPT/HCPCS: 86403 ==

== ENCOUNTER 2023-08-11 13:08 | Outpatient (CLI) | payer OTHER, SELFPAY ==
--- NOTE | 2023-08-11 13:09 | US_ITS ---
PROCEDURE: US OB BIOPHYSICAL PROFILE CLINICAL INDICATION: sga COMPARISON: No exams were available for comparison FINDINGS: Transabdominal sonographic images of the uterus were obtained. From her established due date she is 37weeks 6days. The following parameters are obtained: Viable Fetus in the cephalic presentation with and anterior placenta grade 2. Average ultrasound age is 36weeks 6days Estimated weight 3,078g, 6 lb 13 oz. The cervix measures 5.24 cm. Measurements: heart Rate = 122bpm BPD = 36weeks 1day, 22 percentile HC = 37weeks 6days, 28 percentile AC = 37weeks 5days, 61 percentile FL = 35weeks 4days, 7 percentile HC/AC is 0.98 FL/BPD is 0.78 FL/AC is 0.21 Growth: 38 percentile Amniotic fluid index: 11.9cm, MVP 4.62 cm. Qualitative AFV:2 Breathing movements: 2 Gross Body Movements: 2 Tone: 2 Biophysical profile score: 8 Doppler evaluation of the umbilical artery: SD ratio: 1.86-2.23 Resistive index: 0.55 No obvious anomalies evident.Kidneys, profile, stomach, bladder, four-chamber heart, three-vessel cord appear normal. IMPRESSION: 1. Viable fetus in the cephalic presentation with an anterior placenta grade 2. 2. The fluid is within normal limits with an amniotic fluid index of 11.9 cm, MVP 4.62 cm. 3. Biophysical profile is 8/8 with good breathing movement and movement seen. 4. SD ratio is normal 1.86-2.23. 5. Limited anatomical scan appears normal. 6. There has been good interval growth with the fetus currently 38th percentile. Dictated by: Jaylan Aguayo MD 08/12/2023 08:57 Jaylan Aguayo MD in [facility] 08/12/2023 08:57
== END 2023-08-11 23:59 | disposition home or self-care (01) ==
LOC: RAD 13:09
PROVIDERS: PCP Internal Medicine; Visit Provider Nurse Practitioner Obstetrics & Gynecology
DX: O36.5930 Maternal care for other known or suspected poor fetal growth, third trimester, not applicable or unspecified (principal); Z3A.37 37 weeks gestation of pregnancy
CPT/HCPCS: 76816; 76819; 76820

== ENCOUNTER 2023-08-17 13:23 | Inpatient (IN) | payer OTHER, SELFPAY ==
[2023-08-17 09:34] VITALS: BMI 40.8
[2023-08-17 09:48] LABS: Microscopic, Urine URINE MICROSCOPIC (MICROSCOPIC)
[2023-08-17] MEDS: LACTATED RINGERS 1000ML 1,000 ML 999 ML IV (09:48)
[2023-08-17] MEDS: ONDANSETRON 4MG/2ML VIAL 4 MG IV (09:49)
[2023-08-17 10:03] LABS: Appearance,Urine SL CLOUDY (Clear); Blood, Urine Negative (Negative); Color,Urine YELLOW (Yellow); Glucose,Urine (UA) Negative (Negative); Ketones,Urine 3+ (Negative); Leukocyte Esterase,Urine Negative (Negative); Nitrate,Urine Negative (Negative); Protein,Urine TRACE (Negative); Specific Gravity, Urine >= 1.030 (1.005-1.030)
[2023-08-17 10:15] LABS: Barbiturates Screen,Urine Negative ng/ml (<200); Benzodiazepines Screen,Urine Negative ng/ml (<200)
[2023-08-17 10:16] LABS: Amphetamine/Metha Screen,Urine Negative ng/ml (<1000)
[2023-08-17 10:17] LABS: Cannabinoid Screen,Urine Negative ng/ml (<50); Cocaine Screen,Urine Negative ng/ml (<300)
[2023-08-17 10:18] LABS: Methadone Screen,Urine Negative ng/ml (<300)
[2023-08-17 10:19] LABS: Opiate Screen,Urine Negative ng/ml (<300); Phencyclidine Screen,Urine Negative ng/ml (<25)
[2023-08-17 10:22] LABS: Bilirubin,Urine 1+ (Negative)
[2023-08-17 10:23] LABS: Bacteria,Urine 2+ /lpf; WBC,Urine Occasional #/hpf (0-3)
[2023-08-17 10:26] VITALS: BP 143/78; PULSE 105; RESP 18; TEMP 36.7; O2SAT 95; BMI 40.8
--- NOTE | 2023-08-17 10:26 | US_ITS ---
PROCEDURE INFORMATION: Exam: US Biophysical Profile Without Non-Stress Test Exam date and time: 08/17/2023 11:16 AM Age: 27 years old Clinical indication: Other: Decreased movement; ; Additional info: Decreased movement TECHNIQUE: Imaging protocol: US biophysical profile without non-stress testing. COMPARISON: US OB >= 14 WEEKS FETUS 04/04/2023 1:07 PM FINDINGS: Gestation: There is a single intrauterine containing a fetus. heart rate: 134 bpm presentation and position: Cephalic presentation Placenta: Placenta is anterior. Grade 2 Amniotic fluid index: GIO is 12.41 cm. Amniotic fluid index 12.4 cm. BIOPHYSICAL PROFILE: breathing (BPP): 2 /2 gross body movement (BPP): 1 out of 2. In CINE loops labeled as 7, there is an extremity movement. tone (BPP): 2 /2 Amniotic fluid (BPP): 2 /2 BIOMETRY: Gestational age (AUA): Gestational age 38 weeks 5 days MATERNAL ANATOMY: Cervix: Cervical length measures 4.28 cm. Other findings: LMP 11/19/2022. IMPRESSION: 1. Single live intrauterine containing a fetus. Gestational age 38 weeks 5 days 2. BPP 7/8. Per performing technologist 3 definitive gross body movements were difficult to obtained. In the CINE loops labeled as 7, there is an extremity movement. STRATEGY MANAGER consult and short-term follow-up are recommended.
--- NOTE | 2023-08-17 13:53 | P.CONPHA_ITS ---
Pharmacy Intervention Comments: MEDICATION RECONCILIATION COMPLETED ON PATIENT USING EXTERNAL FILL HISTORY FROM PHARMACY AND LIST FROM ASSISTANT PORTFOLIO MANAGER OFFICE. -ALEXX MINAD
--- NOTE | 2023-08-17 13:53 | HMH.PHAINT1 ---
Pharmacy Intervention Comments: MEDICATION RECONCILIATION COMPLETED ON PATIENT USING EXTERNAL FILL HISTORY FROM PHARMACY AND LIST FROM ELECTRIC DEICER ASSEMBLER OFFICE. -ALEXX MINAD
[2023-08-17] MEDS: DEXTROSE 5%-LACTATED RINGERS 1,000 ML 125 ML IV (14:17)
[2023-08-17] MEDS: LACTATED RINGERS 1000ML 1,000 ML 500 ML IV (14:18)
[2023-08-17 14:20] VITALS: BP 135/84; PULSE 83; RESP 18; TEMP 36.7; O2SAT 97
[2023-08-17] MEDS: miSOPROStol 100MCG TABLET 50 MCG VG ×2 (14:22→20:27)
[2023-08-17 14:27] LABS: Basophils % 0.3 % (0.1-2.0); Eosinophils # 0.1 K/mm3 (0.0-0.4); Hematocrit 38.9 % (37.0-47.0); Hemoglobin 13.2 g/dL (12.2-16.2); Lymphocytes # 0.7 K/mm3 (0.7-4.5); Lymphocytes % 7.2 % (10-50); Mean Corpuscular HGB Conc 34.1 g/dL (31.8-35.4); Mean Corpuscular Hemoglobin 30.1 pg (27.0-31.2); Mean Corpuscular Volume 88.4 fl (81-99); Mean Platelet Volume 8.3 fl (7.4-10.4); Monocytes # 0.5 K/mm3 (0.1-1.0); Monocytes % 4.7 % (1.7-9.3); Neutrophils # 8.6 K/mm3 (1.8-7.8); Neutrophils % 86.8 % (37.0-80.0); Platelet Count 222 K/mm3 (142-424); Red Cell Distribution Width 16.6 % (11.5-17.5); White Blood Count 9.9 K/mm3 (4.8-10.8)
[2023-08-17 14:29] LABS: MANUAL DIFFERENTIAL MANUAL DIFFERENTIAL (MANUAL DIFF)
[2023-08-17 15:08] LABS: Lymphocytes % 7 % (10-50); Monocytes % 3 % (2-9); Neutrophils % 90 % (42-76); Platelet Estimate Normal; RBC Morphology Normal; Total Cells Counted 100
[2023-08-17] MEDS: BUTORPHANOL TARTRATE 1 MG/ML VIAL IV (22:41)
[2023-08-18] MEDS: LACTATED RINGERS 1000ML 1,000 ML 500 ML IV (02:55)
--- NOTE | 2023-08-18 04:07 | P.PNANES_ITS ---
[facility] Disclaimer: The information contained in this section may have been updated after the patient was seen, as this information can be updated by other users. Medical History Recurrent major depression resistant to treatment Surgical History No history of previous surgery Family History Mother FHx: mental illness depression; anxiety Social History Smoking Status: Never smoker second hand exposure: No alcohol intake: current alcohol intake frequency: a few times a month counseling given: No substance use type: denies use counseling given: No current occupational status: employed Travel in the last 8 weeks: None adopted: No caregiver/support person: Yes (she has a daughter) foster care: No household members: significant other and family housing: house lives independently: No marital status: single number of children: 1 number of grandchildren: 0 education level: high school service: No retirement: No 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 pets and animals: Yes (she has a lab) pets and animals: dog(s) Hx Recent Travel: No sexually active: Yes well-balanced diet: rarely or never caffeine: Yes physical activity: none maciel/restorationist: None special maciel needs: No working smoke detector in home: Yes fire extinguisher in home: Yes carbon monox detector in home: Yes firearms in home: No do you feel safe at home: Yes victim of physical abuse: No victim of emotional abuse: No victim of sexual abuse: No would you like helpful sources: No [facility] Anesthesia Checklist Patient Identification Patient Identification: Arm Band, Family and Verbal (Name & ) Structural Data Admitted From: Inpatient ([id number]) Planned Operative Procedure/s: Labor Epidural Consent for Planned Operative Procedure(s) Verified: Yes Verified Documents: Surgical Consent and History and Physical NPO Status Verified Time NPO: 20:00 Chart Verification Results Verified: CBC and BMP Additional verifications Patient : Yes Anesthesia Reactions: No Hx Blood Transfusions: No Blood Transfusion Reaction: No Cardiovascular Assessment Heart Sounds: S1 & S2 Pulse Rhythm: Irregular Peripheral Edema: Yes (3+ PALOMO LE) Airway Assessment Mallampati Score:: Class II C-Spine Mobility Assessed: Yes (FROM) TMJ Mobility Assessed: Yes Dentition: Good Dentition (Nothing loose) Neurological Assessment Level of Consciousness: Awake, Alert, Appropriate and Follows Commands Hx Seizures: No Numbness or tingling in extremities: No Anesthesia Plan Anesthesia Risk discussed: Yes Anesthesia Plan: Verified ASA Class: III Anesthesia Type: Epidural
--- NOTE | 2023-08-18 04:08 | HMH.PROCNOTE ---
[facility] Procedure Note Date: 08/18/23 Time: 03:34 Procedure Note:: ANESTHESIA PROCEDURE NOTE Labor Epidural Position: Sitting Prep: Betadine x3 Local to skin: Lido 1% x 3mL Needle: Mcakyla 19g JERMAINE to air @: 7.5cm CSF: NEGATIVE; Heme: NEGATIVE; Parasthesia: NEGATIVE Catheter easily threaded to: 20cm Test dose: NEGATIVE x5mL Lidocaine 1.5% w/Epi 1:200K Catheter taped @: 15cm Bolus; Ropivicaine 0.2% x12 mL + Fentanyl 50mcg. Pt. tolerated procedure well. Deliver was imminent, so PRINTING AND STAMPING SUPERVISOR not started. Will continue to follow as needed.
[2023-08-18] MEDS: OXYTOCIN/RINGERS LACTATE 30 UNITS/500 ML BAG 999 UNITS IV (04:45)
--- NOTE | 2023-08-18 04:53 | P.HP_ITS ---
History of Present Illness *Admission Date: 08/17/23 *Reason for visit:: Induction *History of present illness: Cecy Araiza is a Who presented to labor and delivery with persistent nausea and vomiting and decreased movement. Her vomiting was controlled with Zofran. BPP was ordered for decreased movement and was noted to be 6 out of 8 (movement). She was originally scheduled for an induction on Monday. She has an WILLIAM of 08/26/2023 giving her a gestational age of 38 weeks and 5 days gestation. This has been complicated by hypothyroidism, maternal obesity and Rh- status. She also had a concern for rectal pinworms about a month ago and was treated with mebendazole. On presentation she denied contractions, leakage of fluid, or vaginal bleeding. A-, antibody negative, rubella immune, hepatitis B negative, hepatitis C negative, RPR negative, HIV negative 1 hour GTT: 147 3-hour GTT: 92/178/143/84 GBS negative PFSH PFSH Disclaimer: The information contained in this section may have been updated after the patient was seen, as this information can be updated by other users. Medical History Recurrent major depression resistant to treatment Surgical History No history of previous surgery Family History Mother FHx: mental illness depression; anxiety Social History Smoking Status: Never smoker second hand exposure: No alcohol intake: current alcohol intake frequency: a few times a month counseling given: No substance use type: denies use counseling given: No current occupational status: employed Travel in the last 8 weeks: None adopted: No caregiver/support person: Yes (she has a daughter) foster care: No household members: significant other and family housing: house lives independently: No marital status: single number of children: 1 number of grandchildren: 0 education level: high school service: No skilled nursing: No 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 pets and animals: Yes (she has a lab) pets and animals: dog(s) Hx Recent Travel: No sexually active: Yes well-balanced diet: rarely or never caffeine: Yes physical activity: none maciel/restoration: None special maciel needs: No working smoke detector in home: Yes fire extinguisher in home: Yes carbon monox detector in home: Yes firearms in home: No do you feel safe at home: Yes victim of physical abuse: No victim of emotional abuse: No victim of sexual abuse: No would you like helpful sources: No Review of Systems Review of Systems Review of systems (narrative): Review of Systems Constitutional: Denies fever, chills, and sweats Eyes: Denies vision change/ pain Respiratory: Denies cough and shortness of breath Cardiovascular: Denies chest pain and lightheadedness Gastrointestinal: Denies abdominal pain. Endorses nausea, vomiting. Genitourinary: Denies dysuria and incontinence Musculoskeletal: Denies shoulder pain and back pain Neurological: Denies change in speech or headaches Meds Home Medications and Allergies Home Medications Medication Instructions Recorded Confirmed Type vits no.126-ferrous fum 1 tab PO DAILY #30 tabs 01/25/23 08/17/23 Rx 28 mg iron-folic acid 800 mcg tablet (Classic ) ferrous sulfate 325 mg (65 mg 325 mg PO DAILY #30 tabs 05/18/23 08/17/23 Rx iron) tablet levothyroxine 50 mcg tablet 50 mcg PO DAILY #30 tabs 06/20/23 08/17/23 Rx ondansetron 4 mg disintegrating 4 mg PO Q6HP PRN Nausea And 08/17/23 08/17/23 History tablet Vomiting New Prescriptions to Start Prescriptions: Allergies Allergy/AdvReac Type Severity Reaction Status Date / Time No Known Allergies Allergy Verified 08/15/23 15:59 Exam Data for Last 24 hours Vital signs and Labs for Last 24 Hours: Temp Pulse Resp BP Pulse Ox O2 Del Method 98.1 F 83 18 135/84 97 Room Air 08/17/23 14:20 08/17/23 14:20 08/17/23 14:20 08/17/23 14:20 08/17/23 14:20 08/17/23 14:20 Laboratory Results - last 24 hr 08/17/23 09:23: Urine Color Yellow, Urine Appearance Sl cloudy, Urine pH 6.0, Ur Specific [place] >= 1.030, Urine Protein Trace, Urine Glucose (UA) Negative, Urine Ketones 3+, Urine Blood Negative, Urine Nitrate Negative, Urine Bilirubin 1+ A, Urine Urobilinogen 1.0, Ur Leukocyte Esterase Negative, Urine RBC None, Urine WBC Occasional, Ur Squamous Epith Cells 3-5, Urine Bacteria 2+, Urine Opiates Screen Negative, Urine Methadone Screen Negative, Ur Barbituates Screen Negative, Ur Phencyclidine Scrn Negative, Ur Amphetamines Screen Negative, U Benzodiazepines Scrn Negative, Urine Cocaine Screen Negative, U Marijuana (THC) Screen Negative 08/17/23 14:05: WBC 9.9, RBC 4.40, Hgb 13.2, Hct 38.9, MCV 88.4, MCH 30.1, MCHC 34.1, RDW 16.6, Plt Count 222, MPV 8.3, Neut % (Auto) 86.8 H, Lymph % (Auto) 7.2 L, [place] % (Auto) 4.7, Eos % (Auto) 1.0, Baso % (Auto) 0.3, Neut # (Auto) 8.6 H, Lymph # (Auto) 0.7, [place] # (Auto) 0.5, Eos # (Auto) 0.1, Baso # (Auto) 0.0, Total Counted 100, Neutrophils % (Manual) 90 H, Lymphocytes % (Manual) 7 L, Monocytes % (Manual) 3, Platelet Estimate Normal, RBC Morphology Normal, Blood Type A Negative, Antibody Screen Negative I & O for Last 24 hours: Intake & Output 08/15/23 08/16/23 08/17/23 08/18/23 23:59 23:59 23:59 23:59 Weight 269 lb Narrative: General: patient is alert oriented in no acute distress and responds appropriately to questions. HEENT: NCAT, EOMI, moist mucous membranes, neck supple with full ROM Cardiovascular: RRR +S1/S2, no murmurs or rubs Pulmonary: Clear to auscultation bilaterally, nonlabored breathing, symmetric chest rise Abdominal: Gravid abdomen appropriate for gestation. No guarding, rebound, or tenderness noted. SVE: On admission the patient was 1/50/-3 Extremities: trace edema, no tenderness or cyanosis noted Skin: Normal turgor, intact, warm. Negative for erythema, pallor, petechia, or lesions Neurologic: Negative for sensory or motor deficit Psychiatric: Normal affect, normal thought process, good judgment and insight, no depression or anxious mood appreciated. *Routine HEENT Exam Head: Present normocephalic and atraumatic Eye: Present EOMI, PERRL and normal accommodation; Absent conjunctival icterus, scleral injection, nystagmus or exophthalmos ENT: Present mucous membranes moist *Routine Respiratory Exam Respiratory: Present CTA bilaterally, normal respiratory effort, able to speak in complete sentences and symmetric chest movement; Absent accessory muscle use, decreased breath sounds, rales, respiratory distress, wheezes, distant breath sounds or diminished air movement *Routine Cardiovascular Exam Cardiovascular: Present RRR, Normal S1 and Normal S2; Absent murmur or gallop *Routine Abdominal Exam Abdominal: Present soft and normoactive bowel sounds; Absent tenderness, disten ded, rebound or guarding *Routine Rectal Exam Rectal:: deferred *Routine Genitalia Exam Genitalia:: normal female Assessment and Plan *Assessment and plan (1) Hypothyroidism: Status: Acute Qualifiers: Hypothyroidism type: acquired Qualified Code(s): E03.9 - Hypothyroidism, unspecified Category: Medical Code(s): E03.9 - Hypothyroidism, unspecified (2) Depression: Status: Acute Qualifiers: Depression Type: major depressive disorder Major depression recurrence: single episode Active/Remission status: currently active Major depression episode severity: severe Psychotic features: without psychotic features Qualified Code(s): F32.2 - Major depressive disorder, single episode, severe without psychotic features Category: Medical Code(s): F32.A - Depression, unspecified (3) : Status: Acute Qualifiers: Weeks of gestation: 38 weeks Qualified Code(s): Z3A.38 - 38 weeks gestation of Category: Medical Code(s): Z34.90 - Encounter for supervision of normal , unspecified, unspecified trimester (4) Obesity (BMI 30-39.9): Status: Acute Category: Medical Code(s): E66.9 - Obesity, unspecified (5) Abnormal test: Status: Acute Category: Medical Code(s): O28.9 - Unspecified abnormal findings on screening of mother Plan - Monitor vitals - Admit to L&D for induction of labor secondary to nonreassuring testing with a BPP of 6 out of 8 at term - Plan for induction with 50mcg of PO cytotec every 6 hours per protocol - External FHR and TOCO monitor - GBS negative/ Blood type: A- - Hemoglobin: 13.2, Plt: 222 - Plan for epidural - Anticipate vaginal delivery of Male infant: Kirill
[2023-08-18] MEDS: OXYTOCIN/RINGERS LACTATE 30 UNITS/500 ML BAG 40 UNITS IV (05:01)
--- NOTE | 2023-08-18 05:05 | P.PCN_ITS ---
Delivery Note Delivery Date:: 08/18/23 Delivery Time:: 04:39 Anesthesia Type: Epidural Was labor medically induced?: Yes Induction method: per misoprostol protocol Infant delivered prior to 39 weeks?: Yes Justification for early elective delivery:: Gestational Hypertension, Decreased Movements and Other (Nonreassuring testing) Gender: Male at 1 minute: 8 at 5 minutes: 9 Delivery Procedure:: Preoperative diagnosis: 1. at 38 completed this weeks gestation, vertex 2. Rh negative 3. GBS negative 4. Maternal obesity 5. Hypothyroidism Postoperative diagnosis: 1. at 38 completed this weeks gestation, vertex 2. Rh negative 3. GBS negative 4. Maternal obesity 5. Hypothyroidism EBL: 100mL Specimen: 1. Cord blood Findings: 1. Liveborn viable male : Kirill. Apgars 8/9 at 1 and 5 minutes respectively. Weight pending at time of dictation Complications: None Procedure: Normal spontaneous vaginal delivery Nettie Araiza is a 27-year-old G2, P2 who presented to labor and delivery with nausea and vomiting and decreased movement. Her emesis was well- controlled with Zofran. She had a BPP which was 6/8 (movement). Patient was counseled and admitted for induction. She received 2 doses of Cytotec for cervical ripening prior to induction. This morning she had spontaneous rupture membranes revealing clear fluid. At that time she was noted to be 6 cm. She received an epidural for anesthesia and rapidly progressed to complete. The infant was noted to be in MIGUEL position. With effective maternal pushing there was a nonoperative spontaneous vaginal delivery at 0439. There was no nuchal cord. The anterior right shoulder delivered, followed by the posterior shoulder without dystocia, however it was very tight as the infant had there bilateral hands father face. The body and lower extremities delivered without difficulty. The infant was bulb suctioned and was crying immediately following delivery. The infant was placed on the maternal abdomen and greater than one minute was appreciated for delayed cord clamping. The umbilical cord was doubly clamped and cut. Cord blood was collected and sent for routine testing. The placenta delivered with cord traction and suprapubic contertraction. Pitocin was started. The uterus was firm and bleeding was minimal. The perineum, vaginal mas, cervix, and paraurethral area were inspected thoroughly and noted to only have a few very small abrasions that were hemostatic. No lacerations noted. This concluded the delivery. The patient was counseled regarding the events of the delivery. The patient tolerated the delivery well. All counts were correct by nursing. Mother and were doing well and bonding upon my leaving the delivery room. Placental Delivery Description: Spontaneous
[2023-08-18 06:19] LABS: Basophils % 0.1 % (0.1-2.0); Eosinophils % 0.2 % (0.1-12.0); Hematocrit 36.5 % (37.0-47.0); Hemoglobin 12.2 g/dL (12.2-16.2); Lymphocytes # 0.7 K/mm3 (0.7-4.5); Lymphocytes % 6.2 % (10-50); Mean Corpuscular HGB Conc 33.6 g/dL (31.8-35.4); Mean Corpuscular Hemoglobin 29.7 pg (27.0-31.2); Mean Corpuscular Volume 88.5 fl (81-99); Mean Platelet Volume 8.3 fl (7.4-10.4); Monocytes # 0.4 K/mm3 (0.1-1.0); Neutrophils # 10.7 K/mm3 (1.8-7.8); Neutrophils % 90.5 % (37.0-80.0); Platelet Count 198 K/mm3 (142-424); Red Blood Count 4.12 M/mm3 (4.20-5.40); Red Cell Distribution Width 16.6 % (11.5-17.5); White Blood Count 11.9 K/mm3 (4.8-10.8)
[2023-08-18 06:22] LABS: MANUAL DIFFERENTIAL MANUAL DIFFERENTIAL (MANUAL DIFF)
[2023-08-18 07:45] VITALS: BP 109/53; PULSE 81; RESP 18; TEMP 37.1; O2SAT 98
[2023-08-18] MEDS: LEVOTHYROXINE 50MCG (0.05MG) TAB 50 MCG PO (08:34)
[2023-08-18] MEDS: IBUPROFEN 400 MG TABLET 800 MG PO (08:34)
[2023-08-18] MEDS: FERROUS SULFATE 325MG TABLET 325 MG PO (08:34)
[2023-08-18] MEDS: ACETAMINOPHEN 500MG TAB 1000 MG PO (08:35)
[2023-08-18] MEDS: WITCH HAZEL 40 PADS/BOX 1 EACH TP (08:36)
[2023-08-18] MEDS: LANOLIN CREAM 40GM TP (08:36)
[2023-08-18] MEDS: BENZOCAINE-MENTHOL SPRAY 56GM CAN TP (08:36)
[2023-08-18 08:46] LABS: Lymphocytes % 4 % (10-50); Monocytes % 2 % (2-9); Neutrophils % 75 % (42-76); Total Cells Counted 100
[2023-08-18 08:48] LABS: Platelet Estimate Normal; RBC Morphology Normal
[2023-08-18] MEDS: RHO(D) IMMUNE GLOBULIN 1,500 UNIT SYRINGE IM (12:33)
[2023-08-18] MEDS: PRENATAL MULTIVITAMIN W/IRON 1 EACH PO (17:42)
[2023-08-18] MEDS: ONDANSETRON 4MG ODT 4 MG PO (23:32)
[2023-08-19] MEDS: LEVOTHYROXINE 50MCG (0.05MG) TAB 50 MCG PO (07:45)
[2023-08-19] MEDS: WITCH HAZEL 40 PADS/BOX 1 EACH TP (08:44)
[2023-08-19] MEDS: SENNA 8.6MG TABLET 8.59999999999999964 MG PO (08:44)
[2023-08-19] MEDS: FERROUS SULFATE 325MG TABLET 325 MG PO (08:44)
[2023-08-19 08:46] VITALS: BP 118/64; PULSE 75; RESP 18; TEMP 36.8; O2SAT 97
--- NOTE | 2023-08-19 10:20 | P.PN_ITS ---
Subjective *Date: 08/19/23 *Time: 12:28 Interval history: Nettie Araiza is a 27-year-old day #1 following a normal spontaneous vaginal delivery at 38 weeks and 5 days gestation secondary to decreased movement and nonreassuring testing. Routine delivery and course thus far. She is doing well and nursing the baby upon my exam this morning -Reports pain is well-controlled -Reports she is tolerating p.o. without nausea or vomiting. -Reports her lochia is scant. -Undecided on contraception -She is breast-feeding her male -Ambulating, voiding difficulty or dysuria. Denies chest pain shortness of breath or pain in her legs. No further complaints at this time. Exam Data for Last 24 hours Vital signs and Labs for Last 24 Hours: Temp Pulse Resp BP Pulse Ox O2 Del Method 98.7 F 81 18 109/53 L 98 Room Air 08/18/23 07:45 08/18/23 07:45 08/18/23 07:45 08/18/23 07:45 08/18/23 07:45 08/18/23 07:45 I & O for Last 24 hours: Intake & Output 08/16/23 08/17/23 08/18/23 08/19/23 23:59 23:59 23:59 23:59 Weight 269 lb Microbiology Reports for the Last 24 Hours: Microbiology 08/17/23 09:23 Urine,Clean Catch Urine Culture - Final Multiple organisms, suggests contamination. Narrative: General: patient is alert oriented in no acute distress and responds appro priately to questions. Appears to be in minimal pain. Sitting up in the chair and doing well HEENT: NCAT, EOMI, moist mucous membranes, neck supple with full ROM Cardiovascular: RRR +S1/S2, no murmurs or rubs Pulmonary: Clear to auscultation bilaterally, nonlabored breathing, symmetric chest rise Abdominal: Fundus below the umbilicus, firm, and tenderness appropriate for the period. Extremities: trace edema, no tenderness or cyanosis noted Skin: Normal turgor, intact, warm. Negative for erythema, pallor, petechia, or lesions Neurologic: Negative for sensory or motor deficit Psychiatric: Normal affect, normal thought process, good judgment and insight, no depression or anxious mood appreciated. Assessment and Plan *Assessment and plan (1) Abnormal test: Status: Acute Category: Medical Code(s): O28.9 - Unspecified abnormal findings on screening of mother (2) Obesity (BMI 30-39.9): Status: Acute Category: Medical Code(s): E66.9 - Obesity, unspecified (3) Gestational hypertension: Status: Acute Qualifiers: Trimester: third trimester Qualified Code(s): O13.3 - Gestational [-induced] hypertension without significant proteinuria, third trimester Category: Medical Code(s): O13.9 - Gestational [-induced] hypertension without significant proteinuria, unspecified trimester (4) Hypothyroidism: Status: Acute Qualifiers: Hypothyroidism type: acquired Qualified Code(s): E03.9 - Hypothyroidism, unspecified Category: Medical Code(s): E03.9 - Hypothyroidism, unspecified (5) Depression: Status: Acute Qualifiers: Depression Type: major depressive disorder Major depression recurrence: single episode Active/Remission status: currently active Major depression episode severity: severe Psychotic features: without psychotic features Qualified Code(s): F32.2 - Major depressive disorder, single episode, severe without psychotic features Category: Medical Code(s): F32.A - Depression, unspecified (6) Normal delivery at term: Status: Acute Category: Medical Code(s): O80 - Encounter for full-term uncomplicated delivery (7) depression: Status: Acute Category: Medical Code(s): O99.345 - Other mental disorders complicating the puerperium; F53.0 - depression (8) : Status: Acute Qualifiers: Weeks of gestation: 38 weeks Qualified Code(s): Z3A.38 - 38 weeks gestation of Category: Medical Code(s): Z34.90 - Encounter for supervision of normal , unspecified, unspecified trimester Plan Stable. PPD#1 s/p -IP. -Doing well. VSS. Serial lochia and fundal checks. -Continue with perineal ice packs for discomfort -Hemoglobin: 13.2--> 12.2 -A-/antibody negative. RhoGAM indicated and released -, male infant -Contraception: undecided -Follow-up 2 weeks for routine visit -Dispo: home tomorrow pending mother/infant status
[2023-08-19] MEDS: PRENATAL MULTIVITAMIN W/IRON 1 EACH PO (17:28)
[2023-08-20 08:57] VITALS: BP 123/78; PULSE 75; RESP 20; TEMP 36.7; O2SAT 100
[2023-08-20] MEDS: LEVOTHYROXINE 50MCG (0.05MG) TAB 50 MCG PO (08:58)
[2023-08-20] MEDS: FERROUS SULFATE 325MG TABLET 325 MG PO (08:58)
[2023-08-20] MEDS: SENNA 8.6MG TABLET 8.59999999999999964 MG PO (08:58)
--- NOTE | 2023-08-20 13:04 | EXP.DC.SUM ---
General Admission date:: 08/17/23 Discharge date: 08/20/23 HPI HPI HPI: Cecy Araiza is a Who presented to labor and delivery with persistent nausea and vomiting and decreased movement. Her vomiting was controlled with Zofran. BPP was ordered for decreased movement and was noted to be 6 out of 8 (movement). She was originally scheduled for an induction on Monday. She has an WILLIAM of 08/26/2023 giving her a gestational age of 38 weeks and 5 days gestation. This has been complicated by hypothyroidism, maternal obesity and Rh- status. She also had a concern for rectal pinworms about a month ago and was treated with mebendazole. On presentation she denied contractions, leakage of fluid, or vaginal bleeding. A-, antibody negative, rubella immune, hepatitis B negative, hepatitis C negative, RPR negative, HIV negative 1 hour GTT: 147 3-hour GTT: 92/178/143/84 GBS negative Hospital Course Hospital Course Hospital Course: Cecy Araiza is a 27-year-old day #2 following a normal spontaneous vaginal delivery at 38 weeks and 5 days gestation secondary to decreased movement and nonreassuring testing. Routine delivery and course thus far. She is doing well and nursing the baby upon my exam this morning -Reports pain is well-controlled -Reports she is tolerating p.o. without nausea or vomiting. -Reports her lochia is scant. -Undecided on contraception -She is breast-feeding her male -Ambulating, voiding difficulty or dysuria. Denies chest pain shortness of breath or pain in her legs. No further complaints at this time. Patient desires discharge home. Routine discharge instructions reviewed with patient in detail and she was understanding. She delivered a male on 08/18/2023 at 0439. Infant weighed 8 pounds 2 ounces and was 19 inches long. Apgars were 8 and 9. EBL of 500. She is breast-feeding. Her blood type is A-, received RhoGAM. Rubella immune. GBS is negative. Follow-up with Dr. Aguayo in 2 weeks Exam Data for Last 24 hours Vital signs and Labs for Last 24 Hours: Temp Pulse Resp BP Pulse Ox O2 Del Method 98.0 F 75 20 123/78 100 Room Air 08/20/23 08:57 08/20/23 08:57 07/07/24 08:57 08/20/23 08:57 08/20/23 08:57 08/20/23 08:57 I & O for Last 24 hours: Intake & Output 08/17/23 08/18/23 08/19/23 08/20/23 23:59 23:59 23:59 23:59 Weight 269 lb Microbiology Reports for the Last 24 Hours: Microbiology 08/17/23 09:23 Urine,Clean Catch Urine Culture - Final Multiple organisms, suggests contamination. Narrative: General: patient is alert oriented in no acute distress and responds appropriately to questions. Appears to be in minimal pain. Picking up the room and standing by the bed this morning HEENT: NCAT, EOMI, moist mucous membranes, neck supple with full ROM Cardiovascular: RRR +S1/S2, no murmurs or rubs Pulmonary: Clear to auscultation bilaterally, nonlabored breathing, symmetric chest rise Abdominal: Fundus below the umbilicus, firm, and tenderness appropriate for the period. Extremities: trace edema, no tenderness or cyanosis noted Skin: Normal turgor, intact, warm. Negative for erythema, pallor, petechia, or lesions Neurologic: Negative for sensory or motor deficit Psychiatric: Normal affect, normal thought process, good judgment and insight, no depression or anxious mood appreciated. DS: Diagnosis Discharge Diagnosis (1) Abnormal test: Status: Acute Code(s): O28.9 - Unspecified abnormal findings on screening of mother (2) Obesity (BMI 30-39.9): Status: Acute Code(s): E66.9 - Obesity, unspecified (3) Gestational hypertension: Status: Acute Code(s): O13.9 - Gestational [-induced] hypertension without significant proteinuria, unspecified trimester Qualifiers: Trimester: third trimester Qualified Code(s): O13.3 - Gestational [-induced] hypertension without significant proteinuria, third trimester (4) Hypothyroidism: Status: Acute Code(s): E03.9 - Hypothyroidism, unspecified Qualifiers: Hypothyroidism type: acquired Qualified Code(s): E03.9 - Hypothyroidism, unspecified (5) Depression: Status: Acute Code(s): F32.A - Depression, unspecified Qualifiers: Depression Type: major depressive disorder Major depression recurrence: single episode Active/Remission status: currently active Major depression episode severity: severe Psychotic features: without psychotic features Qualified Code(s): F32.2 - Major depressive disorder, single episode, severe without psychotic features (6) Normal delivery at term: Status: Acute Code(s): O80 - Encounter for full-term uncomplicated delivery (7) depression: Status: Acute Code(s): O99.345 - Other mental disorders complicating the puerperium; F53.0 - depression (8) : Status: Acute Code(s): Z34.90 - Encounter for supervision of normal , unspecified, unspecified trimester Qualifiers: Weeks of gestation: 38 weeks Qualified Code(s): Z3A.38 - 38 weeks gestation of Meds Home Medications and Allergies Home Medications Medication Instructions Recorded Confirmed Type vits no.126-ferrous fum 1 tab PO DAILY #30 tabs 01/25/23 08/17/23 Rx 28 mg iron-folic acid 800 mcg tablet (Classic ) ferrous sulfate 325 mg (65 mg 325 mg PO DAILY #30 tabs 05/18/23 08/17/23 Rx iron) tablet levothyroxine 50 mcg tablet 50 mcg PO DAILY #30 tabs 06/20/23 08/17/23 Rx ondansetron 4 mg disintegrating 4 mg PO Q6HP PRN Nausea And 08/17/23 08/17/23 History tablet Vomiting acetaminophen 500 mg tablet 500 mg PO Q6H PRN fever #30 tabs 08/19/23 Rx ibuprofen 800 mg tablet 800 mg PO Q8H PRN pain #60 tabs 08/19/23 Rx sennosides 8.6 mg tablet (Senna 8.6 mg PO BIDP PRN Constipation 08/19/23 Rx Lax) #60 tabs New Prescriptions to Start Prescriptions: acetaminophen Martha Childress ibuprofen Monroe,Martha sennosides [Senna Lax] Martha Childress Allergies Allergy/AdvReac Type Severity Reaction Status Date / Time No Known Allergies Allergy Verified 08/15/23 15:59 Discharge Plan Disposition Patient Disposition: Home, Self-Care Discharge Order Discharge Orders: Discharge Order (Routine); Ordered 08/20/23 Ordered By: Martha Childress Follow up Plan Follow up with: Jaylan Aguayo MD [Staff Physician] - 2 weeks Prescriptions/Medication Reconciliation: New sennosides [Senna Lax] 8.6 mg Tablet 8.6 mg PO BIDP PRN (Reason: Constipation) Qty: 60 2RF ibuprofen 800 mg tablet 800 mg PO Q8H PRN (Reason: pain) Qty: 60 2RF acetaminophen 500 mg tablet 500 mg PO Q6H PRN (Reason: fever) Qty: 30 3RF Continued levothyroxine 50 mcg tablet 50 mcg PO DAILY Qty: 30 8RF ferrous sulfate 325 mg (65 mg iron) tablet 325 mg PO DAILY Qty: 30 2RF Classic 28 mg iron- 800 mcg tablet 1 tab PO DAILY Qty: 30 11RF ondansetron 4 mg tablet,disintegrating 4 mg PO Q6HP PRN (Reason: Nausea And Vomiting) Problem Reconciliation Problems Reviewed?: Yes Patient Discharge Instructions ACTIVITY: Continue current activity DIET: regular diet Additional Instructions: Congratulations on the delivery of your sweet baby boy. It is my privilege to be a part of your [employer] team and I am so thankful I could be a part of your special day. Discharge: -Take 800 mg Ibuprofen every 8 hours as needed for pain. You can also take 500-1000 mg of Tylenol in between doses, every 6-8 hours. -Colace can be taken 1-2 times per day as you need to soften your stool. Make sure to drink at least 8 cups of water per day. -Iron supplements can make you constipated. You can take iron tablets every other day if constipation is too bad. -Nothing in the vagina for 6 weeks - no sex, douching, tampons. No tub baths -Do not lift greater than 15 pounds for 6 weeks, this is the equivalent of 2 gallons of milk. -Reasons to return to L&D or call On-Call doctor - fever (greater than 100.4) - heavy vaginal bleeding (soaking through 1 pad in less than 2 hours or passing clots that are egg sized) - vaginal discharge (malodorous and/or purulent) - severe headaches, leg tenderness/edema, or any other symptoms that warrant immediate medical attention. depression/blues - Normal to feel anxious/overwhelmed for first 2 weeks - Talk to your doctor if: anxiety lasts over 2 weeks, trouble bonding with baby, withdrawing from other family members, thoughts of harming yourself or others Martha Childress DO [facility] [phone] *Nothing in the Vagina for 6 weeks* *No strenuous activity* *No heavy lifting* *No tub baths until okay's by MD* Providers Primary Care Provider: Isiah Tobar Admit Provider: Martha Childress Attending Provider: Martha Childress
== END 2023-08-20 13:51 | disposition home or self-care (01) | DRG 807 ==
LOC: OBOUT 13:24 → OB 13:24
PROVIDERS: Admitting Provider Obstetrics & Gynecology; PCP Internal Medicine; Visit Provider Obstetrics & Gynecology
DX: O99.214 Obesity complicating childbirth (principal); Z37.0 Single live birth; Z3A.38 38 weeks gestation of pregnancy; O99.284 Endocrine, nutritional and metabolic diseases complicating childbirth; O13.4 Gestational [pregnancy-induced] hypertension without significant proteinuria, complicating childbirth; O36.8130 Decreased fetal movements, third trimester, not applicable or unspecified
CPT/HCPCS: 59409; 36415; 76819; 80307; 81001; 85007; 85025; 85461; 86850; 87086; 94761; G0283; J0595; J2405; J2790; J3010; J7120